=== PATIENT | female | born 1970 | race Two or more races ===

== ENCOUNTER 2021-05-14 14:04 | Inpatient (IN) | payer MEDICAID, OTHER ==
[~2021-05-14] VITALS: Ht 160 cm; Wt 84.0 kg
[2021-05-14 15:09] LABS: Basophils # (auto) 0 10 ^3/uL (0-0.2); Basophils % (auto) 0.1 % (0.0-2.0); Eosinophils # (auto) 0 10 ^3/uL (0-0.8); Eosinophils % (auto) 0.1 % (0.0-7.0); Hematocrit 39.2 % (36.0-46.0); Hemoglobin 13.4 g/dL (12.2-16.2); Lymphocytes # (auto) 0.7 10 ^3/uL (0.4-5.4); Lymphocytes % (auto) 5.8 % (10.0-50.0); Mean Corpuscular Hemoglobin 30.7 pg (28.0-32.0); Mean Corpuscular Hgb Conc. 34.3 g/dL (32.0-36.0); Mean Corpuscular Volume 89.6 fL (80.0-100.0); Monocytes # (auto) 0.7 10 ^3/uL (0-1.3); Monocytes % (auto) 5.9 % (0.0-12.0); Neutrophils # (auto) 10.7 10 ^3/uL (1.6-8.6); Neutrophils % (auto) 88.1 % (37.0-80.0); Red Blood Cells 4.37 10^6/uL (4.0-5.20); Red Cell Distribution Width 14.2 % (11.8-14.3); White Blood Cell 12.2 10^3/uL (4.4-10.8)
[2021-05-14 15:17] LABS: Albumin 3.9 g/dL (3.4-5.0); Calcium 8.7 mg/dL (8.5-10.1); Potassium 3.8 mmol/L (3.5-5.1)
[2021-05-14 15:26] LABS: BUN/Creatinine Ratio 14.5; Bilirubin, Total 1.4 mg/dL (0.2-1.0); Total Protein 8.7 g/dL (6.4-8.2)
[2021-05-14] MEDS ORDERED: SODIUM CHLORIDE 0.9% 1,000 ML IV ONE (16:45)
[2021-05-14] MEDS ORDERED: ONDANSETRON HCL 4 MG/2 ML VIAL IV ONE (16:45)
[2021-05-14] MEDS ORDERED: fentaNYL CITRATE 100 MCG/2 ML VL IV ONE (16:45)
[2021-05-14 17:59] LABS: Urine Bacteria NONE SEEN /hpf (None Seen); Urine Blood Negative /uL (Negative); Urine Mucus FEW (None Seen); Urine Specific Gravity 1.031 (1.001-1.035); Urine WBC 1 /hpf (0 - 5)
[2021-05-14] MEDS: SODIUM CHLORIDE 0.9% 1,000 ML IV SCH (18:25)
[2021-05-14] MEDS: MORPHINE SULFATE 4 MG/ML SYR/VIAL IV PRN (20:01)
[2021-05-14 21:09] VITALS: BP 143/84
[2021-05-14 21:24] VITALS: BP 143/84
[2021-05-14] MEDS: HYDROcodone-ACET 5/325MG TAB PO PRN (21:48)
[2021-05-14 22:00] VITALS: BP 148/77
[2021-05-15] MEDS: SODIUM CHLORIDE 0.9% 1,000 ML IV SCH (03:36)
[2021-05-15 05:00] VITALS: BP 135/77
[2021-05-15] MEDS: HYDROcodone-ACET 5/325MG TAB PO PRN (06:27)
[2021-05-15 07:01] LABS: Basophils # (auto) 0 10 ^3/uL (0-0.2); Basophils % (auto) 0.2 % (0.0-2.0); Eosinophils # (auto) 0 10 ^3/uL (0-0.8); Eosinophils % (auto) 0.6 % (0.0-7.0); Hematocrit 34.7 % (36.0-46.0); Hemoglobin 12.4 g/dL (12.2-16.2); Lymphocytes % (auto) 14.1 % (10.0-50.0); Mean Corpuscular Hemoglobin 31.9 pg (28.0-32.0); Mean Corpuscular Hgb Conc. 35.6 g/dL (32.0-36.0); Mean Corpuscular Volume 89.4 fL (80.0-100.0); Monocytes # (auto) 0.6 10 ^3/uL (0-1.3); Monocytes % (auto) 9.3 % (0.0-12.0); Neutrophils # (auto) 5.1 10 ^3/uL (1.6-8.6); Neutrophils % (auto) 75.8 % (37.0-80.0); Red Blood Cells 3.88 10^6/uL (4.0-5.20); Red Cell Distribution Width 14.2 % (11.8-14.3); White Blood Cell 6.8 10^3/uL (4.4-10.8)
[2021-05-15 07:04] LABS: Albumin 3.3 g/dL (3.4-5.0); BUN/Creatinine Ratio 15.6; Potassium 3.1 mmol/L (3.5-5.1)
[2021-05-15 07:07] LABS: Bilirubin, Total 3.2 mg/dL (0.2-1.0)
[2021-05-15 08:40] VITALS: BP_SYST 139; BP_SYST 163; BP_DIAS 74; BP_DIAS 94
[2021-05-15 09:40] LABS: INR 1.08 (0.9-1.15); Partial Thromboplastin Time 28.2 sec (23.6-33.0)
[2021-05-15] MEDS: ENOXAPARIN SOD 40 MG/0.4 ML SYRINGE SC SCH (10:00)
[2021-05-15] MEDS ORDERED: POTASSIUM CHL 20MEQ/100ML 100 ML IV SCH (11:30)
[2021-05-15] MEDS ORDERED: PANTOPRAZOLE 40 MG/10 ML VIAL INJ IV ONE (11:45)
[2021-05-15] MEDS ORDERED: POTASSIUM EFFERVESENT TAB 25 MEQ PO ONE (11:45)
[2021-05-15] MEDS ORDERED: IBUPROFEN 400 MG TAB PO PRN (11:45)
[2021-05-15] MEDS: LACTATED RINGER'S 1,000 ML IV SCH ×2 (11:45→21:18)
[2021-05-15 15:06] LABS: Alcohol, Urine < 3.0 mg/dL (0-10); Amphetamine Screen, Urine NEGATIVE (NEGATIVE); Barbiturate Scree,Urine NEGATIVE (NEGATIVE); Benzodiazephine Screen, Urine NEGATIVE (NEGATIVE); Cannabinoid Screen, Urine NEGATIVE (NEGATIVE); Cocaine Screen, Urine NEGATIVE (NEGATIVE); Opiate Scree,Urine NEGATIVE (NEGATIVE); Phencyclidine Screen, Urine NEGATIVE (NEGATIVE)
[2021-05-15 17:07] VITALS: BP 117/60
[2021-05-15 20:00] VITALS: BP 123/60
[2021-05-15 22:00] VITALS: BP 123/60
[2021-05-16] MEDS: LACTATED RINGER'S 1,000 ML IV SCH ×3 (04:19→19:47)
[2021-05-16 05:00] VITALS: BP 112/61
[2021-05-16 05:43] LABS: Potassium 3.6 mmol/L (3.5-5.1)
[2021-05-16 05:48] LABS: Basophils # (auto) 0 10 ^3/uL (0-0.2); Basophils % (auto) 0.3 % (0.0-2.0); Eosinophils # (auto) 0 10 ^3/uL (0-0.8); Eosinophils % (auto) 0.4 % (0.0-7.0); Hematocrit 35.2 % (36.0-46.0); Hemoglobin 12.3 g/dL (12.2-16.2); Lymphocytes # (auto) 1.1 10 ^3/uL (0.4-5.4); Lymphocytes % (auto) 14.3 % (10.0-50.0); Mean Corpuscular Hemoglobin 31.3 pg (28.0-32.0); Mean Corpuscular Hgb Conc. 34.9 g/dL (32.0-36.0); Mean Corpuscular Volume 89.7 fL (80.0-100.0); Monocytes # (auto) 0.6 10 ^3/uL (0-1.3); Neutrophils # (auto) 6.2 10 ^3/uL (1.6-8.6); Red Blood Cells 3.93 10^6/uL (4.0-5.20); Red Cell Distribution Width 14.6 % (11.8-14.3)
[2021-05-16 05:49] LABS: Albumin 3.3 g/dL (3.4-5.0); BUN/Creatinine Ratio 27.5; Bilirubin, Total 0.9 mg/dL (0.2-1.0); Calcium 8.7 mg/dL (8.5-10.1); Total Protein 7.4 g/dL (6.4-8.2)
[2021-05-16 08:00] VITALS: BP 123/60
[2021-05-16 09:00] VITALS: BP_SYST 108; BP_SYST 118; BP_DIAS 36; BP_DIAS 75
[2021-05-16] MEDS: PANTOPRAZOLE 40 MG/10 ML VIAL INJ IV SCH (09:10)
[2021-05-16] MEDS: ENOXAPARIN SOD 40 MG/0.4 ML SYRINGE SC SCH (10:00)
[2021-05-16] MEDS ORDERED: MEPERIDINE HCL (50 MG/ML) 1 ML VIAL ONE (12:07)
[2021-05-16] MEDS ORDERED: ROCURONIUM 10MG/ML 10ML VIAL IV ONE (12:07)
[2021-05-16] MEDS ORDERED: fentaNYL CITRATE 100 MCG/2 ML VL ONE (12:07)
[2021-05-16] MEDS ORDERED: DexAMETHasone SOD PHOS 10MG/1ML VIAL INJ ONE (12:08)
[2021-05-16] MEDS ORDERED: NEOSTIGMINE 1 MG/ML INJ (10mg/10ML VIAL) ONE (12:08)
[2021-05-16] MEDS ORDERED: ONDANSETRON HCL 4 MG/2 ML VIAL ONE (12:08)
[2021-05-16] MEDS ORDERED: GLYCOPYRROLATE 0.2 MG/ML 1ML VIAL ONE (12:08)
[2021-05-16] MEDS ORDERED: MIDAZOLAM HCL 2MG/2ML 2ml VIAL (1mg/ml) ONE (12:08)
[2021-05-16] MEDS ORDERED: SODIUM CHLORIDE LOCK 10 ML ONE (12:08)
[2021-05-16] MEDS ORDERED: fentaNYL CITRATE 100 MCG/2 ML VL IV PRN (12:15)
[2021-05-16] MEDS ORDERED: HYDROmorphone HCL 2 MG/ML VL IV PRN (12:15)
[2021-05-16] MEDS ORDERED: METOCLOPRAMIDE HCL 5MG/ml INJ 2ml VIAL IV PRN (12:15)
[2021-05-16] MEDS ORDERED: KETOROLAC TROMETH 30 MG/ML 1ML VIAL IV ONE (12:15)
[2021-05-16] MEDS ORDERED: MORPHINE SULFATE 4 MG/ML SYR/VIAL IV PRN (12:15)
[2021-05-16] MEDS ORDERED: SUCCINYLCHOLINE CHLORIDE 20 MG/ML 10ML VIAL IV ONE (12:33)
[2021-05-16] MEDS ORDERED: ceFAZolin 1GM/50ML 100 ML IV ONE (12:38)
[2021-05-16 13:00] VITALS: BP 114/71
[2021-05-16] MEDS: MORPHINE SULFATE 4 MG/ML SYR/VIAL IV PRN (16:49)
[2021-05-16 20:00] VITALS: BP 138/73
[2021-05-16 22:00] VITALS: BP 138/73
[2021-05-17] MEDS: MORPHINE SULFATE 4 MG/ML SYR/VIAL IV PRN ×2 (00:10→09:12)
[2021-05-17] MEDS: LACTATED RINGER'S 1,000 ML IV SCH ×2 (04:09→05:22)
[2021-05-17 05:00] VITALS: BP 114/62
[2021-05-17] MEDS: HYDROcodone-ACET 5/325MG TAB PO PRN ×2 (05:43→10:55)
[2021-05-17 06:46] LABS: Basophils # (auto) 0 10 ^3/uL (0-0.2); Basophils % (auto) 0.1 % (0.0-2.0); Eosinophils # (auto) 0 10 ^3/uL (0-0.8); Hematocrit 33.8 % (36.0-46.0); Hemoglobin 11.9 g/dL (12.2-16.2); Lymphocytes # (auto) 0.9 10 ^3/uL (0.4-5.4); Lymphocytes % (auto) 8.1 % (10.0-50.0); Mean Corpuscular Hemoglobin 31.2 pg (28.0-32.0); Mean Corpuscular Hgb Conc. 35.2 g/dL (32.0-36.0); Mean Corpuscular Volume 88.7 fL (80.0-100.0); Monocytes % (auto) 8.8 % (0.0-12.0); Red Blood Cells 3.81 10^6/uL (4.0-5.20); Red Cell Distribution Width 14.4 % (11.8-14.3); White Blood Cell 10.9 10^3/uL (4.4-10.8)
[2021-05-17] MEDS ORDERED: cefTRIAXone 1GM/50ML D5W 50 ML IV SCH (09:00)
[2021-05-17 09:07] VITALS: BP 120/66
[2021-05-17] MEDS: ENOXAPARIN SOD 40 MG/0.4 ML SYRINGE SC SCH (09:11)
[2021-05-17] MEDS: PANTOPRAZOLE 40 MG/10 ML VIAL INJ IV SCH (09:11)
[2021-05-17] MEDS ORDERED: METR500T PO (13:13)
[2021-05-17] MEDS ORDERED: LEVO-28 PO (13:13)
[2021-05-17] MEDS ORDERED: IBUP400T22 PO (14:56)
[2021-05-17] MEDS ORDERED: PANT40TA2 PO (14:56)
[2021-05-17] MEDS ORDERED: HYDR-4902 PO (14:56)
[2021-05-17 15:50] VITALS: BP 125/79
[2021-05-17 16:50] VITALS: BP 125/79
== END 2021-05-17 18:30 | disposition home or self-care (01) | DRG 263 ==
LOC: ER 14:04 → OVERFLOW 17:31 → WEST WING 20:32
PROVIDERS: ADMIT Internal Medicine; ATTEND Internal Medicine
PROC: 0FT44ZZ Resection of Gallbladder, Percutaneous Endoscopic Approach (ICD-10-PCS; principal; 2021-05-16 12:47)
DX: K85.10 Biliary acute pancreatitis without necrosis or infection (principal); R65.10 Systemic inflammatory response syndrome (SIRS) of non-infectious origin without acute organ dysfunction; K80.10 Calculus of gallbladder with chronic cholecystitis without obstruction; E66.9 Obesity, unspecified; N88.8 Other specified noninflammatory disorders of cervix uteri; E87.6 Hypokalemia; Z20.822 Contact with and (suspected) exposure to COVID-19; N83.202 Unspecified ovarian cyst, left side; R74.8 Abnormal levels of other serum enzymes; Z68.32 Body mass index [BMI] 32.0-32.9, adult
CPT/HCPCS: 36415; 71045; 74176; 74181; 76705; 76856; 80053; 80061; 80307; 81001; 82150; 82247; 83690; 84702; 85025; 85610; 85730; 86850; 86900; 86901; 96361; 96374; 96375; 99291; C9113; G0378; J0330; J0690; J0696; J1100; J2250; J2405